=== PATIENT | female | born 1990 | race Caucasian/White ===

== ENCOUNTER 2024-06-09 13:38 | Emergency (ER) | payer SELFPAY ==
[~2024-06-09] VITALS: Ht 160 cm; Wt 69.2 kg
[2024-06-09 13:52] VITALS: BP 144/99; PULSE 103; RESP 19; TEMP 98.7; O2SAT 98
[2024-06-09] MEDS: IBUPROFEN 600 MG TAB PO ONE (14:48)
[2024-06-09] MEDS ORDERED: CEPH-588 PO (15:49)
[2024-06-09] MEDS ORDERED: SULF-59 PO (15:49)
[2024-06-09] MEDS ORDERED: IBUP-2213 PO (15:49)
[2024-06-09 16:05] VITALS: BP 144/99; PULSE 103; RESP 19; TEMP 98.7; O2SAT 98
== END 2024-06-09 16:05 | disposition home or self-care (01) ==
LOC: MED 13:38
DX: L03.211 Cellulitis of face (principal); Z98.890 Other specified postprocedural states; Z79.899 Other long term (current) drug therapy
CPT/HCPCS: 99284